=== PATIENT | male | born 1960 | race Caucasian/White ===

== ENCOUNTER 2025-04-16 13:32 | Emergency (ER) | payer BC ==
[2025-04-16] MEDS: Lidocaine 1% PF 2 ML SDV INJECT ONE (15:11)
[2025-04-16] MEDS: Bacitracin Oint 1 GM U/D Packet TOP ONE (15:20)
[2025-04-16] MEDS ORDERED: Amoxicillin/Clavulanate K 875-125 MG Tab ONE (15:30)
== END 2025-04-16 15:40 | disposition home or self-care (01) ==
LOC: LB.ED 13:32
DX: L03.011 Cellulitis of right finger (principal)
CPT/HCPCS: 10060; 96372; 99283; A9270; J0696; J2003